=== PATIENT | female | born 1985 | race Two or more races ===

== ENCOUNTER 2022-04-09 20:56 | Emergency (ER) | payer OTHER ==
[2022-04-09 23:44] LABS: BASOPHIL 0.9 % (0-2); HGB 13.2 g/dl (12.5-16.0); LYMPHOCYTE 35.5 % (15-48); MCH 33.3 pg (25.0-31.0); MCHC 33.8 g/dL (32.0-36.0); MCV 98.5 fL (78.0-100.0); MONOCYTE 5.2 % (0-12); MPV 9.4 fL (6.0-9.5); NEUTROPHIL 55.3 % (41-80); NRBC 0; PLT 229 K/uL (150-400); RBC 3.96 M/uL (4.20-5.40); RDW 11.5 % (11.5-14.0); WBC 6.7 K/uL (4.0-10.5)
[2022-04-10 00:02] LABS: ALBUMIN 3.9 g/dL (3.4-5.0); BILIRUBIN - TOTAL 0.5 mg/dL (0.2-1.0); CREATININE 0.74 mg/dL (0.51-0.95); GLOBULIN (CALCULATION) 3.3 g/dL; POTASSIUM 4.1 mmol/L (3.5-5.1); TOTAL PROTEIN 7.2 g/dL (6.4-8.2)
[2022-04-10] MEDS ORDERED: NORCO 5-325 TA1 EACH PO (00:34)
[2022-04-10] MEDS ORDERED: ONDANSETRON ODT4 MG PO (00:36)
== END 2022-04-10 00:44 | disposition home or self-care (01) ==
LOC: FER 20:56
PROVIDERS: Emergency Medicine
DX: R10.32 Left lower quadrant pain (principal); K62.5 Hemorrhage of anus and rectum; F17.200 Nicotine dependence, unspecified, uncomplicated; Z88.5 Allergy status to narcotic agent; Z28.310 Unvaccinated for COVID-19
CPT/HCPCS: 36415; 80053; 83690; 84703; 85025; 99284

== ENCOUNTER → 2022-06-26 | Day surgery (SDC) | payer OTHER ==
[~2022-06-26] VITALS: Ht 160 cm; Wt 61.2 kg
[~2022-06-26] MED LIST: AMOXICILLIN875 MG PO; FLAGYL500 MG PO; MOTRIN600 MG PO; NORCO 5-325 TA1 EACH PO; ONDANSETRON ODT4 MG PO; PROMETHAZINE12.5 M1 PO; SERTRALINE HCL50 MG PO
[2022-06-26 11:51] LABS: HCG (URINE) SCREEN NEGATIVE (NEGATIVE)
[2022-06-26 12:18] LABS: BASOPHIL 0.6 % (0-2); EOSINOPHIL 2.1 & (0-5); HCT 37.9 % (37.0-47.0); HGB 12.6 g/dl (12.5-16.0); LYMPHOCYTE 27.4 % (15-48); MCH 32.8 pg (25.0-31.0); MCHC 33.2 g/dL (32.0-36.0); MCV 98.7 fL (78.0-100.0); MONOCYTE 6.6 % (0-12); MPV 8.9 fL (6.0-9.5); NEUTROPHIL 63.1 % (41-80); PLT 235 K/uL (150-400); RBC 3.84 M/uL (4.20-5.40); RDW 11.5 % (11.5-14.0); WBC 6.17 K/uL (4.0-10.5)
== END | disposition home or self-care (01) ==
LOC: FAS 11:15
PROVIDERS: Oral & Maxillofacial Surgery
DX: K04.7 Periapical abscess without sinus (principal); K02.9 Dental caries, unspecified; F41.0 Panic disorder [episodic paroxysmal anxiety]
CPT/HCPCS: 36415; 84703; 85025; J1100; J1885; J2001; J2250; J2704; J3010; J7120